=== PATIENT | male | born 1990 | race Caucasian/White ===

== ENCOUNTER 2016-05-16 22:00 | Emergency (ER) | payer OTHER ==
--- NOTE | 2016-05-17 01:00 | EDDOCDS ---
Physician Documentation [facility] Name: Herb Lassiter Age: 26 yrs Sex: Male : 1990 Arrival Date: 05/16/2016 Time: 22:00 Bed TR7 Private MD: Other - Complete Info On Cds Disposition: 05/17/16 00:45 Discharged to Home/Self Care. Impression: Dermatitis, unspecified - ECZEMA, BILATERAL UPPER EXTREMITIES. - Condition is Stable. - Discharge Instructions: Rash. - Prescriptions for clobetasol 0.05 % Topical cream - apply 1 application by TOPICAL route 2 times per day for 14 days; 1 tube. - Medication Reconciliation, Local Pharmacy Hours form. - Follow up: Emergency Department; When: As needed; Reason: Worsening of conditions. Follow up: Private Physician; When: 4 - 5 days; Reason: Wound/Symptom Recheck, Recheck today's complaints, Continuance of care. - Problem is new. - Symptoms are unchanged. Historical: - Allergies: no known allergies; - Home Meds: 1. none - PMHx: none; - PSHx: none; - Social history: Smoking status: Patient uses tobacco products, current every day smoker. No barriers to communication noted, The patient speaks fluent Vietnamese, Speaks appropriately for age. - Family history: Not pertinent. - : The pt / caregiver states he / she is not on anticoagulants. Home medication list is obtained from the patient. - Exposure Risk Screening:: None identified. Vital Signs: 05/16 22:02 BP 155 / 63; Pulse 67; Resp 18 S; Temp 96.1(O); Pulse Ox 99% on R/A; Weight 85.73 kg / gr2 189 lbs (R); Height 5 ft. 11 in. (180.34 cm) (R); Pain 2/10; 05/17 00:52 BP 143 / 84; Pulse 71; Resp 18; Temp 96.5(O); Pulse Ox 97% on R/A; Pain 0/10; kb5 05/16 22:02 Body Mass Index 26.36 (85.73 kg, 180.34 cm) gr2 MDM: 00:57 Financial registration complete. pm4 Signatures: Yolis PorterRN RN ld5 Kayce Fairchild RN RN dsf Mel Frank PA-C PA-C dt4 Rigo Belle, Reg Reg pm4 MTDD
--- NOTE | 2016-05-17 01:00 | EDDOCDS ---
Nurse's Notes [facility] Name: Herb Lassiter Age: 26 yrs Sex: Male : 1990 Arrival Date: 05/16/2016 Time: 22:00 Bed TR7 Private MD: Other - Complete Info On Cds Diagnosis: Dermatitis, unspecified-ECZEMA, BILATERAL UPPER EXTREMITIES Presentation: 05/16 22:05 Presenting complaint: Patient states: dry red itchy patches on both arms. pt noticed dsf this two weeks ago. Pt states it is getting worse. Adult Sepsis Screening: The patient does not have new or worsening altered mentation. Patient's respiratory rate is less than 22. Systolic blood pressure is greater than 100. Patient has a qSOFA score of 0- Negative Sepsis Screen. Suicide/Homicide risk assessment- the patient denies having any suicidal and/or homicidal ideations and does not present with any other emotional, behavioral or mental health complaints. Status: Patient is not a service unit operator or dependent. Transition of care: patient was not received from another setting of care. 22:05 Acuity: LOKESH Level 5 dsf 22:05 Method Of Arrival: Walkin/Carried/Asstd dsf Triage Assessment: 22:06 General: Appears in no apparent distress, Behavior is appropriate for age, cooperative. dsf Pain: Denies pain. 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 Derm: Reports itching. Historical: - Allergies: no known allergies; - Home Meds: 1. none - PMHx: none; - PSHx: none; - Social history: Smoking status: Patient uses tobacco products, current every day smoker. No barriers to communication noted, The patient speaks fluent Persian, Speaks appropriately for age. - Family history: Not pertinent. - : The pt / caregiver states he / she is not on anticoagulants. Home medication list is obtained from the patient. - Exposure Risk Screening:: None identified. Screenin/19 00:58 Screening information is obtained from the patient. Fall risk: No risks identified. ld5 Assistance ADL's: requires no assistance with activities of daily living. Abuse/DV Screen: The patient / caregiver reports he/she is: not in a situation that causes fear, pain or injury. Nutritional screening: No deficits noted. Advance Directives: Currently, there is no health care proxy. home support is adequate. Assessment: 00:58 General: Appears in no apparent distress, Behavior is appropriate for age. Pain: Denies ld5 pain. Neurological: Level of Consciousness is awake, alert. Respiratory: Airway is patent Respiratory effort is even, unlabored. Derm: Reports itching, rash. Vital Signs: 05/16 22:02 BP 155 / 63; Pulse 67; Resp 18 S; Temp 96.1(O); Pulse Ox 99% on R/A; Weight 85.73 kg gr2 (R); Height 5 ft. 11 in. (180.34 cm) (R); Pain 2/10; 05/17 00:52 BP 143 / 84; Pulse 71; Resp 18; Temp 96.5(O); Pulse Ox 97% on R/A; Pain 0/10; kb5 05/16 22:02 Body Mass Index 26.36 (85.73 kg, 180.34 cm) gr2 Vitals: 05/16 22:02 Log In Time: May 16, 2016 at 22:02. gr2 ED Course: 22:02 Patient visited by Kaye Snyder. gr2 22:02 Other - Complete Info On Cds is Private Physician. gr2 22:02 Patient moved to Waiting gr2 22:04 Patient visited by Kaye Snyder. gr2 22:04 Patient moved to Pre RCE gr2 22:06 Triage Initiated dsf 19 00:27 Patient moved to I5 / M5 dsf 00:31 Mel Frank [facility]. dt4 00:31 Breezy Murphy DO is Attending Physician. dt4 00:31 Patient visited by Mel Frank PA-C. dt4 00:52 Patient visited by Mahad Shore PCA. kb5 00:58 Patient moved to TR7 ld5 00:58 The patient / caregiver is instructed regarding the plan of care and ED course. Patient ld5 has correct armband on for positive identification. 00:58 No IV's were initiated during this patient's visit. No procedures done that require ld5 assistance. 00:59 Patient visited by Yolis Porter RN. ld5 Order Results: There are currently no results for this order. Outcome: 00:45 Discharge ordered by Provider. dt4 00:58 Discharge Assessment: Patient awake, alert and oriented x 3. No cognitive and/or ld5 functional deficits noted. Patient verbalized understanding of disposition instructions. patient administered narcotics - no. The following High Risk Discharge criteria are identified: None. Discharged to home ambulatory, with significant other. Condition: stable. Discharge instructions given to patient, significant other, Instructed on discharge instructions, follow up and referral plans. medication usage, Demonstrated understanding of instructions, medications, Pt was receptive of discharge instructions/ teaching. Prescriptions given X 1. No special radiology studies were completed. Property :Personal belongings accompany Pt. 00:59 Patient left the ED. ld5 Signatures: Mahad Shore, ELEVATOR OPERATOR ELEVATOR OPERATOR kb5 Yolis PorterRN RN ld5 Kayce Fairchild,DAMI RN Kaye Linda gr2 Mel Frank PA-C PA-C dt4 AMILCAR
--- NOTE | 2016-05-19 02:00 | EDDOCDS ---
Nurse's Notes [facility] Name: Herb Lassiter Age: 26 yrs Sex: Male : 1990 Arrival Date: 05/16/2016 Time: 22:00 Bed TR7 Private MD: Other - Complete Info On Cds Diagnosis: Dermatitis, unspecified-ECZEMA, BILATERAL UPPER EXTREMITIES Presentation: 05/16 22:05 Presenting complaint: Patient states: dry red itchy patches on both arms. pt noticed dsf this two weeks ago. Pt states it is getting worse. Adult Sepsis Screening: The patient does not have new or worsening altered mentation. Patient's respiratory rate is less than 22. Systolic blood pressure is greater than 100. Patient has a qSOFA score of 0- Negative Sepsis Screen. Suicide/Homicide risk assessment- the patient denies having any suicidal and/or homicidal ideations and does not present with any other emotional, behavioral or mental health complaints. 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 Transition of care: patient was not received from another setting of care. 22:05 Acuity: LOKESH Level 5 dsf 22:05 Method Of Arrival: Walkin/Carried/Asstd dsf Triage Assessment: 22:06 General: Appears in no apparent distress, Behavior is appropriate for age, cooperative. dsf Pain: Denies pain. 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 Derm: Reports itching. Historical: - Allergies: no known allergies; - Home Meds: 1. none - PMHx: none; - PSHx: none; - Social history: Smoking status: Patient uses tobacco products, current every day smoker. No barriers to communication noted, The patient speaks fluent Kazakh, Speaks appropriately for age. - Family history: Not pertinent. - : The pt / caregiver states he / she is not on anticoagulants. Home medication list is obtained from the patient. - Exposure Risk Screening:: None identified. Screenin/19 00:58 Screening information is obtained from the patient. Fall risk: No risks identified. ld5 Assistance ADL's: requires no assistance with activities of daily living. Abuse/DV Screen: The patient / caregiver reports he/she is: not in a situation that causes fear, pain or injury. Nutritional screening: No deficits noted. Advance Directives: Currently, there is no health care proxy. home support is adequate. Assessment: 00:58 General: Appears in no apparent distress, Behavior is appropriate for age. Pain: Denies ld5 pain. Neurological: Level of Consciousness is awake, alert. Respiratory: Airway is patent Respiratory effort is even, unlabored. Derm: Reports itching, rash. Vital Signs: 05/16 22:02 BP 155 / 63; Pulse 67; Resp 18 S; Temp 96.1(O); Pulse Ox 99% on R/A; Weight 85.73 kg gr2 (R); Height 5 ft. 11 in. (180.34 cm) (R); Pain 2/10; 05/17 00:52 BP 143 / 84; Pulse 71; Resp 18; Temp 96.5(O); Pulse Ox 97% on R/A; Pain 0/10; kb5 05/16 22:02 Body Mass Index 26.36 (85.73 kg, 180.34 cm) gr2 Vitals: 05/16 22:02 Log In Time: May 16, 2016 at 22:02. gr2 ED Course: 22:02 Patient visited by Kaye Snyder. gr2 22:02 Other - Complete Info On Cds is Private Physician. gr2 22:02 Patient moved to Waiting gr2 22:04 Patient visited by Kaye Snyder. gr2 22:04 Patient moved to Pre RCE gr2 22:06 Triage Initiated dsf 19 00:27 Patient moved to I5 / M5 dsf 00:31 Mel Frank PA-C is PHCP. dt4 00:31 Breezy Murphy DO is Attending Physician. dt4 00:31 Patient visited by Mel Frank PA-C. dt4 00:52 Patient visited by Mahad Shore PCA. kb5 00:58 Patient moved to TR7 ld5 00:58 The patient / caregiver is instructed regarding the plan of care and ED course. Patient ld5 has correct armband on for positive identification. 00:58 No IV's were initiated during this patient's visit. No procedures done that require ld5 assistance. 00:59 Patient visited by Yolis Porter RN. ld5 01:36 [facility] [place] was scanned into [employer] and attached to record. gjb 12:04 T-Sheet-- Draft Copy was scanned into [employer] and attached to record. Order Results: There are currently no results for this order. Outcome: 00:45 Discharge ordered by Provider. dt4 00:58 Discharge Assessment: Patient awake, alert and oriented x 3. No cognitive and/or ld5 functional deficits noted. Patient verbalized understanding of disposition instructions. patient administered narcotics - no. The following High Risk Discharge criteria are identified: None. Discharged to home ambulatory, with significant other. Condition: stable. Discharge instructions given to patient, significant other, Instructed on discharge instructions, follow up and referral plans. medication usage, Demonstrated understanding of instructions, medications, Pt was receptive of discharge instructions/ teaching. Prescriptions given X 1. No special radiology studies were completed. Property :Personal belongings accompany Pt. 00:59 Patient left the ED. ld5 Signatures: Miranda Benjamin, Reg Reg lg Mahad Shore, NETWORK SECURITY ADMINISTRATOR NETWORK SECURITY ADMINISTRATOR kb5 Yolis Porter,RN RN ld5 Kayce FairchildRN RN dsf Kaye Snyder gr2 Mel Frank PA-C PA-C dt4 Carey Grande Chart Complete AMILCAR
--- NOTE | 2016-05-19 02:00 | EDDOCDS ---
Physician Documentation [facility] Name: Herb Lassiter Age: 26 yrs Sex: Male : 1990 Arrival Date: 05/16/2016 Time: 22:00 Bed TR7 Private MD: Other - Complete Info On Cds Disposition: 05/17/16 00:45 Discharged to Home/Self Care. Impression: Dermatitis, unspecified - ECZEMA, BILATERAL UPPER EXTREMITIES. - Condition is Stable. - Discharge Instructions: Rash. - Prescriptions for clobetasol 0.05 % Topical cream - apply 1 application by TOPICAL route 2 times per day for 14 days; 1 tube. - Medication Reconciliation, Local Pharmacy Hours form. - Follow up: Emergency Department; When: As needed; Reason: Worsening of conditions. Follow up: Private Physician; When: 4 - 5 days; Reason: Wound/Symptom Recheck, Recheck today's complaints, Continuance of care. - Problem is new. - Symptoms are unchanged. Historical: - Allergies: no known allergies; - Home Meds: 1. none - PMHx: none; - PSHx: none; - Social history: Smoking status: Patient uses tobacco products, current every day smoker. No barriers to communication noted, The patient speaks fluent Spanish, Speaks appropriately for age. - Family history: Not pertinent. - : The pt / caregiver states he / she is not on anticoagulants. Home medication list is obtained from the patient. - Exposure Risk Screening:: None identified. Vital Signs: 05/16 22:02 BP 155 / 63; Pulse 67; Resp 18 S; Temp 96.1(O); Pulse Ox 99% on R/A; Weight 85.73 kg / gr2 189 lbs (R); Height 5 ft. 11 in. (180.34 cm) (R); Pain 2/10; 05/17 00:52 BP 143 / 84; Pulse 71; Resp 18; Temp 96.5(O); Pulse Ox 97% on R/A; Pain 0/10; kb5 05/16 22:02 Body Mass Index 26.36 (85.73 kg, 180.34 cm) gr2 MDM: 00:57 Financial registration complete. pm4 01:36 [facility] Payment Agreement was scanned into [employer] and attached to record. gjb 12:04 T-Sheet-- Draft Copy was scanned into [employer] and attached to record. lg Signatures: Miranda Benjamin, Reg Reg lg Yolis Porter,RN RN ld5 Kayce FairchildRN RN dsf Mel Frank PA-C PA-C dt4 Carey Grande gjb Rigo Belle, Reg Reg pm4 The chart was reviewed and I authenticate all verbal orders and agree with the evaluation and treatment provided.Attachments: 01:36 [facility] [place] [email or web address] 12:04 T-Sheet-- Draft Copy lg Chart Complete MTDD
--- NOTE | 2016-05-19 02:00 | EDDOCDS ---
Physician Documentation [facility] Name: Herb Lassiter Age: 26 yrs Sex: Male : 1990 Arrival Date: 05/16/2016 Time: 22:00 Bed TR7 Private MD: Other - Complete Info On Cds Disposition: 05/17/16 00:45 Discharged to Home/Self Care. Impression: Dermatitis, unspecified - ECZEMA, BILATERAL UPPER EXTREMITIES. - Condition is Stable. - Discharge Instructions: Rash. - Prescriptions for clobetasol 0.05 % Topical cream - apply 1 application by TOPICAL route 2 times per day for 14 days; 1 tube. - Medication Reconciliation, Local Pharmacy Hours form. - Follow up: Emergency Department; When: As needed; Reason: Worsening of conditions. Follow up: Private Physician; When: 4 - 5 days; Reason: Wound/Symptom Recheck, Recheck today's complaints, Continuance of care. - Problem is new. - Symptoms are unchanged. Historical: - Allergies: no known allergies; - Home Meds: 1. none - PMHx: none; - PSHx: none; - Social history: Smoking status: Patient uses tobacco products, current every day smoker. No barriers to communication noted, The patient speaks fluent Arabic, Speaks appropriately for age. - Family history: Not pertinent. - : The pt / caregiver states he / she is not on anticoagulants. Home medication list is obtained from the patient. - Exposure Risk Screening:: None identified. Vital Signs: 05/16 22:02 BP 155 / 63; Pulse 67; Resp 18 S; Temp 96.1(O); Pulse Ox 99% on R/A; Weight 85.73 kg / gr2 189 lbs (R); Height 5 ft. 11 in. (180.34 cm) (R); Pain 2/10; 05/17 00:52 BP 143 / 84; Pulse 71; Resp 18; Temp 96.5(O); Pulse Ox 97% on R/A; Pain 0/10; kb5 05/16 22:02 Body Mass Index 26.36 (85.73 kg, 180.34 cm) gr2 MDM: 00:57 Financial registration complete. pm4 01:36 [facility] Payment Agreement was scanned into [employer] and attached to record. gjb 12:04 T-Sheet-- Draft Copy was scanned into [employer] and attached to record. lg Signatures: Miranda Benjamin, Reg Reg lg Yolis Porter,RN RN ld5 Kayce FairchildRN RN dsf Mel Frank PA-C PA-C dt4 Carey Grande gjb Rigo Belle, Reg Reg pm4 The chart was reviewed and I authenticate all verbal orders and agree with the evaluation and treatment provided.Attachments: 01:36 [facility] [place] [email or web address] 12:04 T-Sheet-- Draft Copy lg Chart Complete MTDD
== END 2016-05-17 00:59 | disposition home or self-care (01) ==
LOC: M ED 22:00
DX: R21 Rash and other nonspecific skin eruption (principal); L30.9 Dermatitis, unspecified; F17.210 Nicotine dependence, cigarettes, uncomplicated